=== PATIENT | male | born 1980 | race Caucasian/White ===

== ENCOUNTER 2024-09-18 11:58 | Emergency (ER) | payer SELFPAY ==
[~2024-09-18] VITALS: Ht 170.2 cm; Wt 60.0 kg
[2024-09-18 12:10] VITALS: O2SAT 100
[2024-09-18] MEDS: SODIUM CHLORIDE 0.9% 1,000 ML IV ONE (12:26)
[2024-09-18] MEDS: LEVETIRACETAM 1000MG PREMIX 100 ML IV ONE (12:26)
[2024-09-18] MEDS: KETOROLAC 30MG/ML VIAL IV STA (12:26)
[2024-09-18 12:44] LABS: BASOPHILS % 0.6 % (0.0-2.0); DIFFERENTIAL COMMENT 0; EOSINOPHILS % 0.8 % (0.0-5.0); HEMATOCRIT. 44.2 % (42.0-52.0); HEMOGLOBIN. 14.4 g/dL (14.0-18.0); MEAN CORPUSCULAR HEMOGLOBIN 25.8 pg (28.0-32.0); MEAN CORPUSCULAR HGB CONC 32.7 g/dL (31.0-37.0); MEAN CORPUSCULAR VOLUME 78.9 fL (80.0-94.0); MEAN PLATELET VOLUME 9.7 fl (7.4-10.4); MONOCYTES % 7.1 % (2.0-8.0); NEUTROPHILS % 74.5 % (40.0-76.0); PLATELET 217 x1000/uL (130-400); RED CELL DISTRIBUTION WIDTH 14.3 % (11.6-14.6); WHITE BLOOD COUNT 10.2 x1000/uL (4.5-11.0)
[2024-09-18 12:55] LABS: CHLORIDE 107 mEq/L (98-107); POTASSIUM 3.9 mEq/L (3.5-5.1); SODIUM 142 mEq/L (136-145)
[2024-09-18 12:56] LABS: CARBON DIOXIDE 26 mEq/L (21-32)
[2024-09-18 13:01] LABS: CREATININE 0.7 mg/dL (0.6-1.3); GLUCOSE 85 mg/dL (70-105); UREA NITROGEN BLOOD 7 mg/dL (9-23)
[2024-09-18 13:02] LABS: ETHANOL BLOOD < 10 mg/dL (<10)
[2024-09-18] MEDS: MORPHINE SULFATE 4 MG/ML INJ (FOR IV/IM USE) IV SCH (13:21)
[2024-09-18 16:16] VITALS: BP 111/72; PULSE 65; RESP 19; TEMP 37.1; O2SAT 100
== END 2024-09-18 16:38 | disposition home or self-care (01) ==
LOC: ER 12:53
DX: R56.9 Unspecified convulsions (principal)
CPT/HCPCS: 80048; 80320; 85025; 36415; 70450; 96365; 96375; 99285; J1953; J2270; J7030; J1885; G0480

== ENCOUNTER 2024-10-14 15:06 | Emergency (ER) | payer OTHER ==
[~2024-10-14] VITALS: Ht 170.2 cm; Wt 69.0 kg
[~2024-10-14 15:06] MED LIST: KEPP500 PO; LACO100T2 PO; MIDO10TA3 MT
[2024-10-14 15:07] VITALS: O2SAT 99
[2024-10-14] MEDS ORDERED: LORAZEPAM 2MG/ML INJ IV ONE (15:30)
[2024-10-14] MEDS: LEVETIRACETAM 1000MG PREMIX 100 ML IV ONE (15:35)
[2024-10-14] MEDS: SODIUM CHLORIDE 0.9% 1,000 ML IV ONE (15:35)
[2024-10-14] MEDS: LORAZEPAM 2MG/ML UD SYRINGE IV SCH (15:35)
[2024-10-14 16:02] LABS: CHLORIDE 105 mEq/L (98-107); POTASSIUM 3.5 mEq/L (3.5-5.1); SODIUM 140 mEq/L (136-145)
[2024-10-14 16:03] LABS: CALCIUM 9.2 mg/dL (8.7-10.4); CARBON DIOXIDE 26 mEq/L (21-32)
[2024-10-14 16:08] LABS: BASOPHILS % 0.7 % (0.0-2.0); CREATININE 0.9 mg/dL (0.6-1.3); DIFFERENTIAL COMMENT 0; EOSINOPHILS % 0.9 % (0.0-5.0); ETHANOL BLOOD < 10 mg/dL (<10); GLUCOSE 102 mg/dL (70-105); HEMATOCRIT. 41.8 % (42.0-52.0); MEAN CORPUSCULAR HEMOGLOBIN 26.3 pg (28.0-32.0); MEAN CORPUSCULAR HGB CONC 33.5 g/dL (31.0-37.0); MEAN CORPUSCULAR VOLUME 78.3 fL (80.0-94.0); MEAN PLATELET VOLUME 9.5 fl (7.4-10.4); MONOCYTES % 7.6 % (2.0-8.0); NEUTROPHILS % 59.8 % (40.0-76.0); PLATELET 221 x1000/uL (130-400); RED BLOOD CELL COUNT 5.34 mill/uL (4.7-6.1); RED CELL DISTRIBUTION WIDTH 14.9 % (11.6-14.6); UREA NITROGEN BLOOD 6 mg/dL (9-23); WHITE BLOOD COUNT 7.7 x1000/uL (4.5-11.0)
[2024-10-14 16:10] LABS: ALANINE AMINOTRANSFERASE 39 IU/L (10-49); ALBUMIN 4.7 g/dL (3.2-4.8); ASPARTATE AMINOTRANSFERASE 22 IU/L (<34); BILIRUBIN DIRECT 0.2 mg/dL (<=3.0); BILIRUBIN TOTAL 0.8 mg/dL (0.1-1.0); PROTEIN TOTAL 7.5 g/dL (6.0-8.3)
[2024-10-14 17:18] VITALS: TEMP 36.7
[2024-10-14 17:45] LABS: CLARITY URINE CLEAR (CLEAR); COLOR URINE YELLOW (YELLOW); GLUCOSE URINE NEGATIVE (NEGATIVE); KETONES URINE TRACE (NEGATIVE); LEUKOCYTE ESTERASE URINE NEGATIVE (NEGATIVE); NITRITE URINE NEGATIVE (NEGATIVE); OCCULT BLOOD URINE NEGATIVE (NEGATIVE); PH URINE 6.5 (4.5-8.0); PROTEIN URINE NEGATIVE (NEGATIVE); SPECIFIC GRAVITY URINE 1.012 (1.005-1.030); UROBILINOGEN URINE 0.2 E.U./dL (0.2-1.0)
[2024-10-14 18:00] LABS: *AMPHETAMINES SCREEN URINE PRESUMPTIVE POSITIVE (NEGATIVE); *BARBITURATES SCREEN URINE NEGATIVE (NEGATIVE); *BENZODIAZEPINES SCREEN URINE NEGATIVE (NEGATIVE); *COCAINE SCREEN URINE NEGATIVE (NEGATIVE); CANNABINOID URINE SCREEN NEGATIVE (NEGATIVE); ECSTASY MDMA SCREEN URINE NEGATIVE (NEGATIVE); METHADONE URINE SCREEN NEGATIVE (NEGATIVE); OPIATES URINE SCREEN NEGATIVE (NEGATIVE); PHENCYCLIDINE URINE SCREEN NEGATIVE (NEGATIVE)
[2024-10-14 18:54] VITALS: BP 107/74; PULSE 64; RESP 18; O2SAT 99
== END 2024-10-14 19:19 | disposition home or self-care (01) ==
LOC: ER 15:06
DX: G40.909 Epilepsy, unspecified, not intractable, without status epilepticus (principal); F15.10 Other stimulant abuse, uncomplicated; Z59.01 Sheltered homelessness; Z79.899 Other long term (current) drug therapy
CPT/HCPCS: 80076; 80305; 80048; 81003; 80320; 82962; 85025; 36415; 71045; 70450; 96365; 96375; 99285; J1953; J2060; J7030; Z7610; A4606; G0480